=== PATIENT | female | born 1975 | race Caucasian/White ===

== ENCOUNTER 2022-09-20 10:19 | Emergency (ER) | payer BC ==
[2022-09-20] MEDS ORDERED: Iopamidol 612 MG/ML 100 ML Bottle IVPUSH STA (10:48)
[2022-09-20 11:08] LABS: ANION GAP 8.6 meq/L (7-15); CHLORIDE,CL 105 mmol/L (98-107); SODIUM,NA 137 mmol/L (136-145)
[2022-09-20] MEDS ORDERED: Sodium Chloride 0.9% 1,000 ML IV ONE (11:09)
[2022-09-20] MEDS ORDERED: Ketorolac 30 MG/ML SDV IVPUSH ONE (11:09)
[2022-09-20] MEDS ORDERED: Sodium Chloride 0.9% 10 ML Syringe FLUSH PRN (11:09)
[2022-09-20] MEDS ORDERED: HYDROmorphone 1 MG/ML Syringe IVPUSH ONE (11:15)
[2022-09-20 11:16] LABS: ESTIMATED GFR 85 mL/min (>=60)
== END 2022-09-20 14:10 | disposition home or self-care (01) ==
LOC: LL.ED 10:19
DX: G89.18 Other acute postprocedural pain (principal); R10.10 Upper abdominal pain, unspecified; Z79.899 Other long term (current) drug therapy
CPT/HCPCS: 36415; 74177; 80053; 81003; 81025; 82150; 83605; 83690; 85025; 86140; 96361; 96374; 99284; 99284-25; J1170; J7030; Q9967